=== PATIENT | female | born 1990 | race Caucasian/White ===

== ENCOUNTER 2017-11-09 14:21 | Emergency (ER) | payer OTHER ==
[~2017-11-09] VITALS: Ht 188 cm; Wt 93.0 kg
[~2017-11-09 14:21] MED LIST: ACET500 PO; ALBU90OI6 INH; AMOCLA875 PO; AMOX500 PO; BUDE6HFA INH; BUPR150T2 PO; BUPR75 PO; CIPR500 PO; Cipro500 MG PO; ESTNORT PO; HYDACE5 PO; HYDACE5325 PO; HYDHOMSY; IBUP600 PO; LORA2 PO; MECL12.5 PO; MULVITMINE PO; Norco 5-325 Ta1 EACH PO; OMEPRAZOLE MAGN20 MG PO; ONDA4 PO; ONDA4ODT MM; OXYACE5T PO; PHENA200 PO; PROM25 PO; PROM25S PR; Pyridium200 MG PO; RANI150 PO; RXLORA1 PO; RXONDA4ODT MM; SERT50 PO; SINUS MED; SULI200 PO; TRAM50 PO; Verotin-Gr Cap1 EACH PO; Zofran Odt4 MG PO; Zofran4 MG PO; [UNRECOGNIZED DRUG - CODE]; [UNRECOGNIZED DRUG - OTHER] PO
[2017-11-09 15:50] LABS: Source, Urine Clean Catch
[2017-11-09 16:03] LABS: Appearance, Urine Clear (Clear); Bilirubin, Urine Neg (Neg); Blood, Urine Neg (Neg); Color, Urine Yellow (P-Yellow); Glucose Qualitative, Urine Neg (Neg); Ketones, Urine Neg (Neg); Leukocyte Esterase, Urine 2+ (Neg); Nitrite, Urine Neg (Neg); Protein, Urine 2+ (Neg); Specific Gravity, Urine 1.015 (1.003-1.022); Urobilinogen, Urine NORM (Normal)
[2017-11-09 16:17] LABS: Bacteria Mod /hpf; Red Blood Cells, Urine 0-2 /hpf (0-2); Squamous Epithelial Cells Many /hpf (Few)
[2017-11-09 16:57] LABS: BASOPHILS ABSOLUTE AUTO 0.02 K/mm3 (0.00-0.23); BASOPHILS PERCENT AUTO 0 % (0-2); EOSINOPHILS ABSOLUTE AUTO 0.13 K/mm3 (0.00-0.68); EOSINOPHILS PERCENT AUTO 1 % (0-6); Hematocrit 41.3 % (33.0-51.0); Hemoglobin 13.3 g/dL (11.5-16.0); IMMATURE GRAN ABSOLUTE AUTO 0.05 K/mm3 (0.00-0.10); IMMATURE GRAN PERCENT AUTO 1 % (0-1); LYMPHOCYTES PERCENT AUTO 30 % (21-46); MONOCYTES ABSOLUTE AUTO 0.58 K/mm3 (0.16-1.47); MONOCYTES PERCENT AUTO 6 % (4-13); Mean Corpuscular HGB 31.4 pg (26.0-34.0); Mean Corpuscular HGB Conc 32.2 g/dL (31.5-36.5); Mean Corpuscular Volume 98 fL (80-100); NEUTROPHILS PERCENT AUTO 62 % (41-73); Platelet Count 176 K/mm3 (150-400); RDW Standard Deviation 46.5 fL (35.1-46.3); Red Blood Cell Count 4.23 M/mm3 (3.80-5.20); White Blood Cell Count 9.48 K/mm3 (4.00-11.30)
[2017-11-09 17:17] LABS: Alanine Aminotransfer (ALT/SGP 20 U/L (12-78); Albumin, Blood 4.3 g/dL (3.4-5.0); Albumin/Globulin Ratio 1.4 (0.8-1.8); Alk Phos 75 U/L (50-136); Anion Gap 8 mmol/L (6-16); Aspartate Aminotrans (AST/SGOT 16 U/L (12-37); Beta HCG, Quantitative, Serum 811 mIU/mL (0-3); Bilirubin, Total 0.3 mg/dL (0.1-1.0); Blood Urea Nitrogen 9 mg/dL (8-24); Bun/Creatinine Ratio 13.8 (12.0-20.0); CO2, Blood 23 mmol/L (21-32); Calcium, Blood 8.9 mg/dL (8.5-10.1); Chloride, Blood 106 mmol/L (98-108); Creatinine, Blood 0.65 mg/dL (0.40-1.00); Globulin, Blood 3.1 g/dL (2.2-4.0); Glomerular Filtration Rate >60 (60-); Glucose, Blood 84 mg/dL (70-99); Potassium, Blood 3.2 mmol/L (3.5-5.5); Sodium, Blood 137 mmol/L (136-145); Total Protein, Blood 7.4 g/dL (6.4-8.2)
== END 2017-11-09 18:25 | disposition home or self-care (01) ==
LOC: ER 14:21
PROVIDERS: Emergency Medicine
DX: O20.9 Hemorrhage in early pregnancy, unspecified (principal); O99.331 Smoking (tobacco) complicating pregnancy, first trimester; F17.210 Nicotine dependence, cigarettes, uncomplicated; Z88.0 Allergy status to penicillin; Z88.2 Allergy status to sulfonamides; Z79.899 Other long term (current) drug therapy; Z3A.01 Less than 8 weeks gestation of pregnancy
CPT/HCPCS: 36415; 76801; 76817; 80053; 81001; 81025; 84702; 85025; 86900; 86901; 87086; 99284

== ENCOUNTER 2017-11-28 11:11 | Emergency (ER) | payer OTHER ==
[~2017-11-28] VITALS: Ht 188 cm; Wt 90.7 kg
[2017-11-28 11:57] LABS: BASOPHILS ABSOLUTE AUTO 0.03 K/mm3 (0.00-0.23); BASOPHILS PERCENT AUTO 0 % (0-2); EOSINOPHILS ABSOLUTE AUTO 0.08 K/mm3 (0.00-0.68); EOSINOPHILS PERCENT AUTO 1 % (0-6); Hematocrit 40.2 % (33.0-51.0); Hemoglobin 13.2 g/dL (11.5-16.0); IMMATURE GRAN ABSOLUTE AUTO 0.06 K/mm3 (0.00-0.10); IMMATURE GRAN PERCENT AUTO 1 % (0-1); LYMPHOCYTES ABSOLUTE AUTO 1.92 K/mm3 (0.84-5.20); LYMPHOCYTES PERCENT AUTO 18 % (21-46); MONOCYTES ABSOLUTE AUTO 0.59 K/mm3 (0.16-1.47); MONOCYTES PERCENT AUTO 5 % (4-13); Mean Corpuscular HGB 31.8 pg (26.0-34.0); Mean Corpuscular HGB Conc 32.8 g/dL (31.5-36.5); Mean Corpuscular Volume 97 fL (80-100); NEUTROPHILS ABSOLUTE AUTO 8.31 K/mm3 (1.96-9.15); NEUTROPHILS PERCENT AUTO 76 % (41-73); Platelet Count 168 K/mm3 (150-400); RDW Standard Deviation 46.5 fL (35.1-46.3); Red Blood Cell Count 4.15 M/mm3 (3.80-5.20); White Blood Cell Count 10.99 K/mm3 (4.00-11.30)
[2017-11-28 12:21] LABS: Alanine Aminotransfer (ALT/SGP 23 U/L (12-78); Albumin, Blood 4.1 g/dL (3.4-5.0); Albumin/Globulin Ratio 1.2 (0.8-1.8); Alk Phos 75 U/L (50-136); Anion Gap 10 mmol/L (6-16); Aspartate Aminotrans (AST/SGOT 13 U/L (12-37); Bilirubin, Total 0.3 mg/dL (0.1-1.0); Blood Urea Nitrogen 8 mg/dL (8-24); Bun/Creatinine Ratio 14.1 (12.0-20.0); CO2, Blood 23 mmol/L (21-32); Calcium, Blood 9.1 mg/dL (8.5-10.1); Chloride, Blood 109 mmol/L (98-108); Creatinine, Blood 0.57 mg/dL (0.40-1.00); Globulin, Blood 3.5 g/dL (2.2-4.0); Glomerular Filtration Rate >60 (60-); Glucose, Blood 81 mg/dL (70-99); Potassium, Blood 3.5 mmol/L (3.5-5.5); Sodium, Blood 142 mmol/L (136-145); Total Protein, Blood 7.6 g/dL (6.4-8.2)
[2017-11-28 13:04] LABS: Beta HCG, Quantitative, Serum 107922 mIU/mL (0-3)
[2017-11-28 13:34] LABS: Source, Urine Clean Catch
[2017-11-28 13:41] LABS: Bilirubin, Urine Neg (Neg); Blood, Urine 1+ (Neg); Glucose Qualitative, Urine Neg (Neg); Ketones, Urine Neg (Neg); Leukocyte Esterase, Urine 1+ (Neg); Nitrite, Urine Neg (Neg); Protein, Urine 1+ (Neg); Specific Gravity, Urine 1.025 (1.003-1.022); Urobilinogen, Urine NORM (Normal)
[2017-11-28 13:50] LABS: Appearance, Urine Clear (Clear); Color, Urine Yellow (P-Yellow)
[2017-11-28 13:52] LABS: Red Blood Cells, Urine Not Seen /hpf (0-2); White Blood Cells, Urine Not Seen /hpf (0-5)
[2017-11-28 13:53] LABS: Bacteria Not Seen /hpf; Squamous Epithelial Cells Not Seen /hpf (Few)
== END 2017-11-28 14:20 | disposition home or self-care (01) ==
LOC: ER 11:11
PROVIDERS: Emergency Medicine
DX: O20.0 Threatened abortion (principal); O99.331 Smoking (tobacco) complicating pregnancy, first trimester; F17.210 Nicotine dependence, cigarettes, uncomplicated; Z88.2 Allergy status to sulfonamides; Z88.0 Allergy status to penicillin; Z79.899 Other long term (current) drug therapy; Z3A.01 Less than 8 weeks gestation of pregnancy
CPT/HCPCS: 36415; 76801; 76817; 80053; 81001; 81025; 84702; 85025; 86900; 86901; 87086; 96374; 99284; J2550

== ENCOUNTER 2017-12-14 11:17 | Emergency (ER) | payer OTHER ==
[~2017-12-14] VITALS: Ht 188 cm; Wt 90.7 kg
[2017-12-14 11:57] LABS: BASOPHILS ABSOLUTE AUTO 0.02 K/mm3 (0.00-0.23); BASOPHILS PERCENT AUTO 0 % (0-2); EOSINOPHILS ABSOLUTE AUTO 0.04 K/mm3 (0.00-0.68); EOSINOPHILS PERCENT AUTO 0 % (0-6); Hematocrit 39.1 % (33.0-51.0); IMMATURE GRAN ABSOLUTE AUTO 0.04 K/mm3 (0.00-0.10); IMMATURE GRAN PERCENT AUTO 0 % (0-1); LYMPHOCYTES ABSOLUTE AUTO 1.61 K/mm3 (0.84-5.20); LYMPHOCYTES PERCENT AUTO 16 % (21-46); MONOCYTES ABSOLUTE AUTO 0.49 K/mm3 (0.16-1.47); MONOCYTES PERCENT AUTO 5 % (4-13); Mean Corpuscular HGB 31.6 pg (26.0-34.0); Mean Corpuscular HGB Conc 33.2 g/dL (31.5-36.5); Mean Corpuscular Volume 95 fL (80-100); Mean Platelet Volume 12.1 fL (9.1-12.4); NEUTROPHILS ABSOLUTE AUTO 7.99 K/mm3 (1.96-9.15); NEUTROPHILS PERCENT AUTO 78 % (41-73); Platelet Count 181 K/mm3 (150-400); RDW Coefficient Variation 12.9 % (11.7-14.2); RDW Standard Deviation 44.7 fL (35.1-46.3); Red Blood Cell Count 4.12 M/mm3 (3.80-5.20); White Blood Cell Count 10.19 K/mm3 (4.00-11.30)
[2017-12-14 12:16] LABS: Alanine Aminotransfer (ALT/SGP 19 U/L (12-78); Albumin, Blood 3.9 g/dL (3.4-5.0); Albumin/Globulin Ratio 1.1 (0.8-1.8); Alk Phos 57 U/L (50-136); Anion Gap 10 mmol/L (6-16); Aspartate Aminotrans (AST/SGOT 11 U/L (12-37); Bilirubin, Total 0.3 mg/dL (0.1-1.0); Blood Urea Nitrogen 10 mg/dL (8-24); Bun/Creatinine Ratio 20.5 (12.0-20.0); CO2, Blood 22 mmol/L (21-32); Chloride, Blood 110 mmol/L (98-108); Creatinine, Blood 0.49 mg/dL (0.40-1.00); Globulin, Blood 3.4 g/dL (2.2-4.0); Glomerular Filtration Rate >60 (60-); Glucose, Blood 97 mg/dL (70-99); Potassium, Blood 3.5 mmol/L (3.5-5.5); Sodium, Blood 142 mmol/L (136-145); Total Protein, Blood 7.3 g/dL (6.4-8.2)
[2017-12-14 12:48] LABS: Beta HCG, Quantitative, Serum >200000 mIU/mL (0-3)
== END 2017-12-14 13:50 | disposition home or self-care (01) ==
LOC: ER 11:17
PROVIDERS: Emergency Medicine
DX: O20.9 Hemorrhage in early pregnancy, unspecified (principal); O99.331 Smoking (tobacco) complicating pregnancy, first trimester; F17.210 Nicotine dependence, cigarettes, uncomplicated; Z3A.09 9 weeks gestation of pregnancy; Z88.0 Allergy status to penicillin; Z88.2 Allergy status to sulfonamides; Z79.899 Other long term (current) drug therapy
CPT/HCPCS: 36415; 76801; 80053; 84702; 85025; 99284

== ENCOUNTER 2017-12-22 06:10 | Day surgery (SDC) | payer OTHER ==
[~2017-12-22] VITALS: Ht 185.4 cm; Wt 91.2 kg
[2017-12-22] MEDS ORDERED: Prilosec Otc20 MG PO (06:58)
[2017-12-24 15:24] LABS: Performing Lab SYMBIODX; Test Name TISSUE BLOCK
== END 2017-12-22 09:15 | disposition home or self-care (01) ==
LOC: ORSCSDS 06:10
PROVIDERS: Obstetrics & Gynecology
PROC: 10A07Z6 Abortion of Products of Conception, Vacuum, Via Natural or Artificial Opening (ICD-10-PCS; principal; 2017-12-22 07:30)
DX: O02.1 Missed abortion (principal); F17.210 Nicotine dependence, cigarettes, uncomplicated; K21.9 Gastro-esophageal reflux disease without esophagitis; Z79.899 Other long term (current) drug therapy
CPT/HCPCS: 88305; J2210; J2250; J2405; J3010; J7120

== ENCOUNTER → 2018-03-11 | Outpatient (CLI) | payer OTHER ==
[~2018-03-11] MED LIST changes: +Prilosec Otc20 MG PO
== END | disposition home or self-care (01) ==
LOC: LAB EV 15:46 → LAB SHORT 15:46
DX: J02.9 Acute pharyngitis, unspecified (principal)
CPT/HCPCS: 87070

== ENCOUNTER 2018-03-18 21:26 | Emergency (ER) | payer OTHER ==
[~2018-03-18] VITALS: Ht 188 cm; Wt 90.7 kg
[2018-03-18] MEDS ORDERED: BUPR75 (21:37)
[2018-03-18] MEDS ORDERED: JUBLIA4 ML (21:37)
[2018-03-18] MEDS ORDERED: PRENATAL TABLE1 EAC1 PO (21:44)
[2018-03-18 23:00] LABS: Source, Urine Clean Catch
[2018-03-18 23:03] LABS: BASOPHILS ABSOLUTE AUTO 0.04 K/mm3 (0.00-0.23); BASOPHILS PERCENT AUTO 0 % (0-2); Bilirubin, Urine Neg (Neg); Blood, Urine 2+ (Neg); EOSINOPHILS ABSOLUTE AUTO 0.18 K/mm3 (0.00-0.68); EOSINOPHILS PERCENT AUTO 2 % (0-6); Glucose Qualitative, Urine Neg (Neg); Hematocrit 40.5 % (33.0-51.0); Hemoglobin 13.2 g/dL (11.5-16.0); IMMATURE GRAN ABSOLUTE AUTO 0.06 K/mm3 (0.00-0.10); IMMATURE GRAN PERCENT AUTO 1 % (0-1); Ketones, Urine Neg (Neg); LYMPHOCYTES ABSOLUTE AUTO 2.83 K/mm3 (0.84-5.20); LYMPHOCYTES PERCENT AUTO 26 % (21-46); Leukocyte Esterase, Urine 1+ (Neg); MONOCYTES ABSOLUTE AUTO 0.85 K/mm3 (0.16-1.47); MONOCYTES PERCENT AUTO 8 % (4-13); Mean Corpuscular HGB 32.2 pg (26.0-34.0); Mean Corpuscular HGB Conc 32.6 g/dL (31.5-36.5); Mean Corpuscular Volume 99 fL (80-100); Mean Platelet Volume 11.8 fL (9.1-12.4); NEUTROPHILS ABSOLUTE AUTO 6.94 K/mm3 (1.96-9.15); NEUTROPHILS PERCENT AUTO 64 % (41-73); Nitrite, Urine Neg (Neg); Platelet Count 174 K/mm3 (150-400); Protein, Urine Neg (Neg); RDW Coefficient Variation 12.1 % (11.7-14.2); RDW Standard Deviation 44.8 fL (35.1-46.3); Urobilinogen, Urine NORM (Normal)
[2018-03-18 23:10] LABS: Appearance, Urine Hazy (Clear); Color, Urine Yellow (P-Yellow)
[2018-03-18 23:11] LABS: Amorphous Light (0-Heavy); Bacteria Many /hpf; Mucus Mod (0-Heavy); Red Blood Cells, Urine 0-2 /hpf (0-2); Squamous Epithelial Cells Mod /hpf (Few); White Blood Cells, Urine 0-2 /hpf (0-5)
[2018-03-18 23:26] LABS: Alanine Aminotransfer (ALT/SGP 24 U/L (12-78); Albumin/Globulin Ratio 1.1 (0.8-1.8); Alk Phos 82 U/L (50-136); Anion Gap 10 mmol/L (6-16); Aspartate Aminotrans (AST/SGOT 21 U/L (12-37); Bilirubin, Total 0.2 mg/dL (0.1-1.0); Blood Urea Nitrogen 7 mg/dL (8-24); CO2, Blood 23 mmol/L (21-32); Calcium, Blood 8.8 mg/dL (8.5-10.1); Chloride, Blood 109 mmol/L (98-108); Creatinine, Blood 0.54 mg/dL (0.40-1.00); Globulin, Blood 3.6 g/dL (2.2-4.0); Glomerular Filtration Rate >60 (60-); Glucose, Blood 84 mg/dL (70-99); Potassium, Blood 3.5 mmol/L (3.5-5.5); Sodium, Blood 142 mmol/L (136-145); Total Protein, Blood 7.6 g/dL (6.4-8.2)
[2018-03-18 23:40] LABS: Beta HCG, Quantitative, Serum 1100 mIU/mL (0-3)
[2018-03-19] MEDS ORDERED: Doxycycline Hy100 MG PO (03:04)
[2018-03-19 04:03] LABS: Candida species (DNA Probe) Negative (NEGATIVE); G. vaginalis (DNA Probe) Negative (NEGATIVE); T. vaginalis (DNA Probe) Negative (NEGATIVE)
[2018-03-21 11:06] LABS: CHLAMYDIA BY NAA Negative (Negative); GONOCOCCUS BY NAA Negative (Negative); TRICH VAG BY NAA Negative (Negative)
== END 2018-03-19 04:51 | disposition home or self-care (01) ==
LOC: ER 21:26
PROVIDERS: Emergency Medicine
DX: N73.9 Female pelvic inflammatory disease, unspecified (principal); O01.9 Hydatidiform mole, unspecified; F17.210 Nicotine dependence, cigarettes, uncomplicated; Z88.0 Allergy status to penicillin; Z88.2 Allergy status to sulfonamides; Z88.1 Allergy status to other antibiotic agents
CPT/HCPCS: 36415; 76830; 76856; 80053; 81001; 84702; 85025; 87086; 87480; 87491; 87510; 87591; 87660; 87661; 96361; 96365; 96375; 96376; 99284-25; J0696; J1170; J2405; J7030

== ENCOUNTER 2018-09-09 19:56 | Emergency (ER) | payer SELFPAY ==
[~2018-09-09 19:56] MED LIST changes: +BIRTH CONTROL; +BUPR75; +Doxycycline Hy100 MG PO; +JUBLIA4 ML; +METTREX2.5 PO; +Motion Sickness25 M1 PO; +PRENATAL TABLE1 EAC1 PO
== END 2018-09-09 22:39 | disposition left against medical advice (07) ==
LOC: ER 19:56
DX: Z53.21 Procedure and treatment not carried out due to patient leaving prior to being seen by health care provider (principal)

== ENCOUNTER → 2018-12-22 | Outpatient (CLI) | payer OTHER ==
[2018-12-22 11:08] LABS: BASOPHILS ABSOLUTE AUTO 0.04 K/mm3 (0.00-0.23); BASOPHILS PERCENT AUTO 0 % (0-2); EOSINOPHILS ABSOLUTE AUTO 0.13 K/mm3 (0.00-0.68); EOSINOPHILS PERCENT AUTO 1 % (0-6); Hematocrit 42.6 % (33.0-51.0); Hemoglobin 13.5 g/dL (11.5-16.0); IMMATURE GRAN ABSOLUTE AUTO 0.05 K/mm3 (0.00-0.10); IMMATURE GRAN PERCENT AUTO 1 % (0-1); LYMPHOCYTES ABSOLUTE AUTO 2.23 K/mm3 (0.84-5.20); LYMPHOCYTES PERCENT AUTO 22 % (21-46); MONOCYTES ABSOLUTE AUTO 0.71 K/mm3 (0.16-1.47); MONOCYTES PERCENT AUTO 7 % (4-13); Mean Corpuscular HGB 31.5 pg (26.0-34.0); Mean Corpuscular HGB Conc 31.7 g/dL (31.5-36.5); Mean Corpuscular Volume 100 fL (80-100); Mean Platelet Volume 12.8 fL (9.1-12.4); NEUTROPHILS ABSOLUTE AUTO 7.12 K/mm3 (1.96-9.15); NEUTROPHILS PERCENT AUTO 69 % (41-73); Platelet Count 190 K/mm3 (150-400); RDW Coefficient Variation 13.1 % (11.7-14.2); RDW Standard Deviation 48.2 fL (35.1-46.3); Red Blood Cell Count 4.28 M/mm3 (3.80-5.20); White Blood Cell Count 10.28 K/mm3 (4.00-11.30)
[2018-12-24 02:05] LABS: CHLAMYDIA TRACHOMATIS, NAA Negative (Negative); NEISSERIA GONORRHOEAE, NAA Negative (Negative)
== END | disposition home or self-care (01) ==
LOC: LAB 10:42 → LAB SHORT 10:42
PROVIDERS: Family Medicine
DX: Z32.01 Encounter for pregnancy test, result positive (principal); R10.31 Right lower quadrant pain
CPT/HCPCS: 84702; 85025; 87491; 87591

== ENCOUNTER → 2019-06-23 | Outpatient (CLI) | payer OTHER | END | disposition home or self-care (01) | LOC: LAB SHORT 14:49 → LAB 14:49 | DX: R30.0 Dysuria (principal) | CPT/HCPCS: 87086 ==

== ENCOUNTER 2019-09-27 19:25 | Emergency (ER) | payer OTHER ==
[~2019-09-27] VITALS: Ht 188 cm; Wt 89.8 kg
[2019-09-27] MEDS ORDERED: PRENATAL TABLE1 EAC2 PO (20:25)
[2019-09-27 20:32] LABS: Source, Urine Clean Catch
[2019-09-27 20:34] LABS: Bilirubin, Urine Neg (Neg); Blood, Urine 1+ (Neg); Glucose Qualitative, Urine Neg (Neg); Ketones, Urine 2+ (Neg); Leukocyte Esterase, Urine 3+ (Neg); Nitrite, Urine Neg (Neg); Protein, Urine 1+ (Neg); Specific Gravity, Urine 1.025 (1.003-1.022); Urobilinogen, Urine NORM (Normal)
[2019-09-27 20:48] LABS: BASOPHILS ABSOLUTE AUTO 0.03 K/mm3 (0.00-0.23); BASOPHILS PERCENT AUTO 0 % (0-2); EOSINOPHILS ABSOLUTE AUTO 0.08 K/mm3 (0.00-0.68); EOSINOPHILS PERCENT AUTO 1 % (0-6); Hematocrit 36.2 % (33.0-51.0); Hemoglobin 11.9 g/dL (11.5-16.0); IMMATURE GRAN PERCENT AUTO 1 % (0-1); LYMPHOCYTES ABSOLUTE AUTO 1.81 K/mm3 (0.84-5.20); LYMPHOCYTES PERCENT AUTO 13 % (21-46); MONOCYTES PERCENT AUTO 6 % (4-13); Mean Corpuscular HGB 32.8 pg (26.0-34.0); Mean Corpuscular HGB Conc 32.9 g/dL (31.5-36.5); Mean Corpuscular Volume 100 fL (80-100); Mean Platelet Volume 11.7 fL (9.1-12.4); NEUTROPHILS ABSOLUTE AUTO 10.99 K/mm3 (1.96-9.15); NEUTROPHILS PERCENT AUTO 80 % (41-73); Platelet Count 163 K/mm3 (150-400); RDW Coefficient Variation 13.2 % (11.7-14.2); RDW Standard Deviation 48.9 fL (35.1-46.3); Red Blood Cell Count 3.63 M/mm3 (3.80-5.20); White Blood Cell Count 13.81 K/mm3 (4.00-11.30)
[2019-09-27 20:55] LABS: Appearance, Urine Hazy (Clear); Color, Urine Yellow (P-Yellow)
[2019-09-27 20:56] LABS: Amorphous Mod (0-Heavy); Bacteria Many /hpf; Squamous Epithelial Cells Many /hpf (Few); White Blood Cells, Urine 25-50 /hpf (0-5)
[2019-09-27 21:07] LABS: Alanine Aminotransfer (ALT/SGP 16 U/L (12-78); Albumin, Blood 3.2 g/dL (3.4-5.0); Albumin/Globulin Ratio 0.9 (0.8-1.8); Alk Phos 61 U/L (50-136); Anion Gap 6 mmol/L (6-16); Aspartate Aminotrans (AST/SGOT 9 U/L (12-37); Bilirubin, Total 0.2 mg/dL (0.1-1.0); Blood Urea Nitrogen 8 mg/dL (8-24); Bun/Creatinine Ratio 16.4 (12.0-20.0); CO2, Blood 24 mmol/L (21-32); Calcium, Blood 8.5 mg/dL (8.5-10.1); Chloride, Blood 110 mmol/L (98-108); Creatinine, Blood 0.49 mg/dL (0.40-1.00); Globulin, Blood 3.6 g/dL (2.2-4.0); Glomerular Filtration Rate >60 (60-); Glucose, Blood 81 mg/dL (70-99); Potassium, Blood 3.3 mmol/L (3.5-5.5); Sodium, Blood 140 mmol/L (136-145); Total Protein, Blood 6.8 g/dL (6.4-8.2)
[2019-09-27] MEDS ORDERED: CEPH500 PO (21:50)
== END 2019-09-27 22:10 | disposition home or self-care (01) ==
LOC: ER 19:25
PROVIDERS: Physician Assistant
DX: O23.42 Unspecified infection of urinary tract in pregnancy, second trimester (principal); O99.332 Smoking (tobacco) complicating pregnancy, second trimester; F17.210 Nicotine dependence, cigarettes, uncomplicated; Z88.2 Allergy status to sulfonamides; Z88.0 Allergy status to penicillin; Z88.8 Allergy status to other drugs, medicaments and biological substances; Z3A.22 22 weeks gestation of pregnancy
CPT/HCPCS: 36415; 76700; 76815; 80053; 81001; 83690; 85025; 87086; 96361; 96374; 99284-25; J0696; J7030

== ENCOUNTER 2020-01-25 23:32 | Inpatient (IN) | payer OTHER ==
[~2020-01-25] VITALS: Ht 182.9 cm; Wt 106.0 kg
[~2020-01-25 23:32] MED LIST changes: +CEPH500 PO; +PRENATAL TABLE1 EAC2 PO
[2020-01-26 00:26] LABS: BASOPHILS ABSOLUTE AUTO 0.04 K/mm3 (0.00-0.23); BASOPHILS PERCENT AUTO 0 % (0-2); EOSINOPHILS PERCENT AUTO 1 % (0-6); Hematocrit 33.9 % (33.0-51.0); Hemoglobin 10.4 g/dL (11.5-16.0); IMMATURE GRAN ABSOLUTE AUTO 0.34 K/mm3 (0.00-0.10); IMMATURE GRAN PERCENT AUTO 2 % (0-1); LYMPHOCYTES ABSOLUTE AUTO 2.34 K/mm3 (0.84-5.20); LYMPHOCYTES PERCENT AUTO 13 % (21-46); MONOCYTES ABSOLUTE AUTO 1.39 K/mm3 (0.16-1.47); MONOCYTES PERCENT AUTO 8 % (4-13); Mean Corpuscular HGB 28.5 pg (26.0-34.0); Mean Corpuscular HGB Conc 30.7 g/dL (31.5-36.5); Mean Corpuscular Volume 93 fL (80-100); NEUTROPHILS ABSOLUTE AUTO 13.64 K/mm3 (1.96-9.15); NEUTROPHILS PERCENT AUTO 76 % (41-73); NRBC ABSOLUTE 0.04 K/mm3 (0.00-0.02); NRBC Auto 0.2 /100 WBC (0.0-0.2); Platelet Count 161 K/mm3 (150-400); RDW Coefficient Variation 14.5 % (11.7-14.2); RDW Standard Deviation 48.9 fL (35.1-46.3); Red Blood Cell Count 3.65 M/mm3 (3.80-5.20); White Blood Cell Count 17.85 K/mm3 (4.00-11.30)
[2020-01-26 00:29] LABS: Mean Platelet Volume 13.1 fL (9.1-12.4)
--- NOTE | 2020-01-26 11:54 | NUR ---
PER PT STILL ACHY DECLINES ANY FURTHER MED'S AT THIS TIME - INSTRUCTED PATIENT TO LET ME KNOW IF SHE CHANGES HER MIND; PT VERBALIZED UNDERSTANDING
--- NOTE | 2020-01-26 13:09 | NUR ---
REPORT TO ROBERT HINES RN
--- NOTE | 2020-01-26 14:04 | NUR ---
DR. SCHROEDER NOTIFIED OF MEDICATION GIVEN EARLY. ORDERS RECEIVED FOR ADDITION MEDICATION FOR PAIN.
[2020-01-27 05:29] LABS: Hemoglobin 9.2 g/dL (11.5-16.0); Mean Corpuscular HGB Conc 29.7 g/dL (31.5-36.5); Mean Corpuscular Volume 95 fL (80-100); NRBC ABSOLUTE 0.02 K/mm3 (0.00-0.02); NRBC Auto 0.1 /100 WBC (0.0-0.2); Platelet Count 147 K/mm3 (150-400); RDW Coefficient Variation 14.8 % (11.7-14.2); RDW Standard Deviation 50.3 fL (35.1-46.3); Red Blood Cell Count 3.28 M/mm3 (3.80-5.20); White Blood Cell Count 14.51 K/mm3 (4.00-11.30)
[2020-01-27] MEDS ORDERED: DOCU100 PO (08:23)
[2020-01-27] MEDS ORDERED: IBUP800 PO (08:23)
--- NOTE | 2020-01-27 09:37 | NUR ---
DECLINED FOLLOW UP APPOINTMENT PT IS GOING OUT OF TOWN TO MOTHER'S HOUSE RIGHT AWAY. MOTHER IS EXPERIENCED, BLEEDING IS STABLE, VSS, IS STABLE, FEEDING WELL, JAUNDICE LEVEL IS LOW, WT LOSS IS WNL. RN ENCOURAGED MOM TO CALL HERE OR OFFICE WITH ANY QUESTIONS OR CONCERNS. MOTHER VERBALIZED UNDERSTANDING AND AGREED.
== END 2020-01-27 09:40 | disposition home or self-care (01) | DRG 807 ==
LOC: OBS 23:32 → BC 23:34 → OBS 01-26 00:01 → BC 01-26 00:02
PROVIDERS: ADMIT Obstetrics & Gynecology
PROC: 10E0XZZ Delivery of Products of Conception, External Approach (ICD-10-PCS; principal; 2020-01-26)
PROC: 00HU33Z Insertion of Infusion Device into Spinal Canal, Percutaneous Approach (ICD-10-PCS; 2020-01-26)
PROC: 3E0R3BZ Introduction of Anesthetic Agent into Spinal Canal, Percutaneous Approach (ICD-10-PCS; 2020-01-26)
DX: O77.0 Labor and delivery complicated by meconium in amniotic fluid (principal); O69.89X0 Labor and delivery complicated by other cord complications, not applicable or unspecified; Z37.0 Single live birth; Z3A.39 39 weeks gestation of pregnancy; Z88.0 Allergy status to penicillin; Z88.2 Allergy status to sulfonamides
CPT/HCPCS: 36415; 51702; 85025; 85027; 86850; 86900; 86901; A9270; J1885; J2001; J2590; J3010; J7120

== ENCOUNTER 2021-07-01 07:13 | Day surgery (SDC) | payer OTHER ==
[~2021-07-01] VITALS: Ht 185.4 cm; Wt 94.2 kg
[~2021-07-01 07:13] MED LIST changes: +DOCU100 PO; +IBUP800 PO
[2021-07-01] MEDS ORDERED: SUMA25 PO (07:41)
[2021-07-01] MEDS ORDERED: CODACE30 PO (07:42)
[2021-07-01] MEDS ORDERED: Inderal 20 mg T20 MG PO (07:43)
[2021-07-01] MEDS ORDERED: HYDHCL25 PO (07:44)
== END 2021-07-01 12:00 | disposition home or self-care (01) ==
LOC: ORSCSDS 07:13
PROVIDERS: Otolaryngology
PROC: 0GSR0ZZ Reposition Parathyroid Gland, Open Approach (ICD-10-PCS; principal; 2021-07-01 08:30)
PROC: 0GTK0ZZ Resection of Thyroid Gland, Open Approach (ICD-10-PCS; principal; 2021-07-01 08:30)
PROC: 0GBJ0ZZ Excision of Thyroid Gland Isthmus, Open Approach (ICD-10-PCS; principal; 2021-07-01 08:30)
DX: E04.9 Nontoxic goiter, unspecified (principal); Z87.891 Personal history of nicotine dependence; K21.9 Gastro-esophageal reflux disease without esophagitis; Z79.899 Other long term (current) drug therapy
CPT/HCPCS: 88307; A9270; J1100; J1885; J2250; J2370; J2405; J2704; J2765; J3010

== ENCOUNTER → 2021-12-10 | Outpatient (CLI) | payer OTHER ==
[~2021-12-10] MED LIST changes: +CODACE30 PO; +HYDHCL25 PO; +Inderal 20 mg T20 MG PO; +SUMA25 PO
[2021-12-11 13:09] LABS: HPV 16 Negative (Negative); HPV 18 Negative (Negative); HPV OTHER HR TYPES Negative (Negative)
== END | disposition home or self-care (01) ==
LOC: LAB SHORT 11:22 → LAB 11:22
PROVIDERS: Obstetrics & Gynecology
DX: Z12.4 Encounter for screening for malignant neoplasm of cervix (principal)
CPT/HCPCS: 87624; G0123

== ENCOUNTER 2023-01-08 19:18 | Observation (INO) | payer OTHER ==
[~2023-01-08] VITALS: Ht 185.4 cm; Wt 78.5 kg
[~2023-01-08 19:18] MED LIST changes: +LEVSOD112 PO
[2023-01-09] VITALS (17 sets, daily range): BP systolic 83–112; BP diastolic 55–99
--- NOTE | 2023-01-09 00:20 | NUR ---
ADMIT ARRIVED VIA GURNEY FROM ER. A&OX4, PLEASANT AND COOPERATIVE. PT AWAITING SURGERY IN A.M. FOR APPENDECTOMY. PT REPORTS TOLERABLE PAIN AT THIS TIME. SURGICAL PACK PROVIDED AND PT USED INDEPENDENTLY. WILL CONTINUE TO MONITOR PAIN AND MEDICATE PER EMAR ORDERS.
--- NOTE | 2023-01-09 04:58 | NUR ---
CALL TO DR HILARIO ANSWERING SERVICE CALL [facility] TO INFORM OF DECLINE IN BP. MESSAGE LEFT W/ SHEFALI PT REMAINS ASYMPTOMATIC, FLUIDS CONTINUED. WILL CALL WITH FURTHER CONCERNS.
[2023-01-09 06:01] LABS: BASOPHILS ABSOLUTE AUTO 0.02 K/mm3 (0.00-0.23); BASOPHILS PERCENT AUTO 0 % (0-2); EOSINOPHILS ABSOLUTE AUTO 0.08 K/mm3 (0.00-0.68); EOSINOPHILS PERCENT AUTO 1 % (0-6); Hematocrit 32.1 % (33.0-51.0); Hemoglobin 10.5 g/dL (11.5-16.0); IMMATURE GRAN ABSOLUTE AUTO 0.01 K/mm3 (0.00-0.10); IMMATURE GRAN PERCENT AUTO 0 % (0-1); LYMPHOCYTES ABSOLUTE AUTO 1.62 K/mm3 (0.84-5.20); LYMPHOCYTES PERCENT AUTO 26 % (21-46); MONOCYTES ABSOLUTE AUTO 0.45 K/mm3 (0.16-1.47); MONOCYTES PERCENT AUTO 7 % (4-13); Mean Corpuscular HGB 33.3 pg (26.0-34.0); Mean Corpuscular HGB Conc 32.7 g/dL (31.5-36.5); Mean Corpuscular Volume 102 fL (80-100); NEUTROPHILS ABSOLUTE AUTO 4.12 K/mm3 (1.96-9.15); NEUTROPHILS PERCENT AUTO 65 % (41-73); Platelet Count 117 K/mm3 (150-400); RDW Coefficient Variation 13.2 % (11.7-14.2); RDW Standard Deviation 49.1 fL (35.1-46.3); Red Blood Cell Count 3.15 M/mm3 (3.80-5.20)
--- NOTE | 2023-01-09 06:26 | NUR ---
SHIFT SUMMARY ER ADMIT FOR APPENDICITIS W/ RLQ PAIN AND N/V. PT MEDICATED X1 FOR PAIN AND NAUSEA THIS SHIFT, CURRENTLY NPO FOR SURGERY TODAY. PT EXPERIENCING HYPOTENSION THIS SHIFT, CALL TO PCP AND ORDERS FOR BOLUS LR FLUIDS. FOLLOWING FLUIDS, REPEAT BP OBTAINED 88/59. PCP NOTIFIED VIA ANSERING SERVICE BY CHARGE NURSE SONNY. PT A&OX4 AND INDEPENDENT IN ROOM. PT REPORTS HX OF UTERINE CA W/ CHEMO AND MIGRAINES. CALL LIGHT W/IN REACH
--- NOTE | 2023-01-09 06:43 | NUR ---
CALL PLACED TO SURGEON DR. HILARIO CONTACTED D/T PTS BP AND PULSE REMAINING LOW AFTER 1L BOLUS OF LR. PT REMAINS ASYMPTOMATIC OF HYPOTENTION AND BRADYCARDIAM BUT REPORTS INCREASING PAIN. DR HILARIO REPORTS HE WILL BE HERE SOON. NO NEW ORDERS OBTAINED
[2023-01-09 06:58] LABS: Albumin/Globulin Ratio 1.2 (0.8-1.8); Bilirubin, Total 0.5 mg/dL (0.1-1.0); Bun/Creatinine Ratio 12.1 (12.0-20.0); Calcium, Blood 7.7 mg/dL (8.5-10.1); Creatinine, Blood 0.66 mg/dL (0.40-1.00); Globulin, Blood 2.5 g/dL (2.2-4.0); Potassium, Blood 3.7 mmol/L (3.5-5.5); Total Protein, Blood 5.5 g/dL (6.4-8.2)
--- NOTE | 2023-01-09 08:20 | NUR ---
DR. HILARIO IN ROOM AT ABOUT 0730. VSS, PT DENIES DIZZINESS. DAY SURGERY RN IN ROOM AT 0750 TO TAKE PT TO SURGERY.
--- NOTE | 2023-01-09 09:16 | NUR ---
PRE-OP NOTE PT TO DSU FOR PRE-OP. PT A&OX4, BREATHING RA, VSS, CALM, NO CONCERNS. Ambulatory in Day Surgery Patient confirms NPO status and agrees with scheduled surgery. Pre-Op teaching done. Pt verbalizes understanding.SURGERY DELAYED, PT REMAINS IN DSU, PAIN MEDICATION GIVEN, PT RESTING QUIETLY C EYES CLOSED. MOM AT BEDSIDE, CALL LIGHT WITHIN REACH.
--- NOTE | 2023-01-09 13:27 | NUR ---
POST OP: REPORT RECEIVED FROM RODENT CONTROL WORKER ROSE. PT TO UNIT AT ABOUT 1200, VSS, A/O. SURGICAL SITES WNL. CALL LIGHT IN REACH
--- NOTE | 2023-01-09 17:04 | NUR ---
SUMMARY: NO ACUTE CHANGE SINCE POST OP. VSS, 1 NARCO 5/325 SEEMS TO BE MANAGING PAIN. PT IS AMBULATING, VOIDING AND TOLERATED A SMALL AMT OF FOOD. PLAN IS FOR DC TOMORROW. PT MOM FILLED NARCO SCRIPT FOR HOME.
--- NOTE | 2023-01-09 17:39 | NUR ---
PT EDUCATED ON RISK REGARDING IGNITION SOURCES AND RISK OF INJURY WHILE OXYGEN IS IN USE. PT DENIES SMOKING/VAPING AND VERBALIZED UNDERSTANDING.
[2023-01-10 00:22] VITALS: BP 115/78
[2023-01-10 04:10] VITALS: BP 88/51
[2023-01-10 04:13] VITALS: BP 94/54
--- NOTE | 2023-01-10 04:20 | NUR ---
SHIFT SUMMARY PT RESTED WELL T/O NIGHT. AMBULATED HALLWAY X2 INDEPENDENTLY. REPORTS FLATUS. DOT PO. 1 NORCO FOR PAIN. X3 LAP SITES TO ABD REMAIN CDI. USES CALL LIGHT APPROPRIATELY.
[2023-01-10 07:31] VITALS: BP 96/65
[2023-01-10] MEDS ORDERED: Norco 5-325 Ta1 EACH PO (09:32)
--- NOTE | 2023-01-10 09:46 | NUR ---
DENIES ANY NAUSEA, REPORTS TOLERATING REGULAR DIET WELL, INCISIONS C/D/I, PT TOOK A SHOWER THIS AM, DC'D HOME, DC INSTRUCTIONS GIVEN, VERBALIZED UNDERSTANDING.
== END 2023-01-10 09:47 | disposition home or self-care (01) ==
LOC: ER 19:18 → SURS 19:19
PROVIDERS: Emergency Medicine; ADMIT Surgery
DX: K35.80 Unspecified acute appendicitis (principal); J45.909 Unspecified asthma, uncomplicated; E89.0 Postprocedural hypothyroidism; Z88.2 Allergy status to sulfonamides; Z88.0 Allergy status to penicillin; Z79.890 Hormone replacement therapy; R10.31 Right lower quadrant pain; N83.02 Follicular cyst of left ovary
CPT/HCPCS: 36415; 74177; 80053; 85025; 87077; 87086; 87186; 88304; 96365; 96375; 96376; 99284-25; A9270; G0378; J0694; J1100; J1170; J1885; J2405; J2704; J3010; J7030; J7120; Q9967

== ENCOUNTER 2023-02-26 07:53 | Day surgery (SDC) | payer OTHER ==
[2023-02-26] VITALS (18 sets, daily range): BP systolic 99–133; BP diastolic 61–79
[~2023-02-26] VITALS: Ht 181 cm; Wt 75.0 kg
--- NOTE | 2023-02-26 09:29 | NUR ---
Ambulatory in Day Surgery. History, Chart, Medications and Allergies reviewed before start of procedure. Pre-Op teaching done. Pt verbalizes understanding. Patient confirms NPO status and agrees with scheduled surgery. Lungs clear T/O to Auscultation. Patient reports completing Chlorhexadine shower X2 prior to admission to hospital. Patient States Post-Procedure ride home has been arranged.
--- NOTE | 2023-02-26 12:45 | NUR ---
PT ARRIVED TO 226 FROM PACU TRANSFERRED PT FROM [facility] TO BED. DC'D LOJA CATH. LAP INCISIONS TO ABD W/TISSUE ADHESIVE CDI. MOD AMOUNT SANG DRAINAGE NOTED ON CORTES PAD. PT REPORTS 8/10 LOWER ABD PAIN. DENIES N/V OR SOB. PROVIDED JELLO, CRACKERS AND WATER TO PT. ORIENTED TO ROOM AND USE OF CALL LIGHT.
[2023-02-26 13:22] LABS: BASOPHILS ABSOLUTE AUTO 0.01 K/mm3 (0.00-0.23); BASOPHILS PERCENT AUTO 0 % (0-2); EOSINOPHILS ABSOLUTE AUTO 0.01 K/mm3 (0.00-0.68); EOSINOPHILS PERCENT AUTO 0 % (0-6); Hemoglobin 11.5 g/dL (11.5-16.0); IMMATURE GRAN ABSOLUTE AUTO 0.04 K/mm3 (0.00-0.10); IMMATURE GRAN PERCENT AUTO 1 % (0-1); LYMPHOCYTES ABSOLUTE AUTO 0.77 K/mm3 (0.84-5.20); LYMPHOCYTES PERCENT AUTO 11 % (21-46); MONOCYTES ABSOLUTE AUTO 0.16 K/mm3 (0.16-1.47); MONOCYTES PERCENT AUTO 2 % (4-13); Mean Corpuscular HGB 32.9 pg (26.0-34.0); Mean Corpuscular HGB Conc 32.9 g/dL (31.5-36.5); Mean Corpuscular Volume 100 fL (80-100); Mean Platelet Volume 12.4 fL (9.1-12.4); NEUTROPHILS ABSOLUTE AUTO 6.07 K/mm3 (1.96-9.15); NEUTROPHILS PERCENT AUTO 86 % (41-73); Platelet Count 132 K/mm3 (150-400); RDW Coefficient Variation 12.9 % (11.7-14.2); RDW Standard Deviation 47.2 fL (35.1-46.3); White Blood Cell Count 7.06 K/mm3 (4.00-11.30)
--- NOTE | 2023-02-26 17:50 | NUR ---
SUMMARY PT STILL PAINFUL. MEDICATED PER ORDERS FOR PAIN. ICE PACK PROVIDED FOR COMFORT; KPAD DID NOT APPEAR EFFECTIVE. PT REPORTS SOME RELIEF W/ICEPACK. GETTING UP INDEPENDENTLY. TOLERATING PO. HAS VOIDED. CALL LIGHT IN REACH.
[2023-02-27] VITALS: BP 93/57
[2023-02-27 04:11] VITALS: BP 104/77
--- NOTE | 2023-02-27 04:37 | NUR ---
SHIFT SUMMARY PATIENT POD1 LAVH. MINIMAL BLOOD ON BRENDAN PAD. PATIENT VOIDING THIS SHIFT IN BATHROOM. PATIENT DID HAVE A BOUT OF NAUSEA AND WAS MEDICATED PER EMAR. ABLE TO REST THIS AM AND TOLERATING LIQUID INTAKE. LAP SITES BANKING SERVICES CLERK WITH TISSUE ADHESIVE. C/D/I. PATIENT PASSING GAS THIS SHIFT. SBP WAS SOFT EARLIER IN SHIFT,OF 90'S, AND PATIENT REPORTED HAVING SOME DIZZINESS, IVF STARTED PER ORDER AND SBP BACK UP TO 104-110. DENIES N/T IN EXT'S. CALL LIGHT IN REACH.
[2023-02-27 08:24] VITALS: BP 103/69
[2023-02-27] MEDS ORDERED: Percocet 5-3251 EACH PO (11:01)
[2023-02-27] MEDS ORDERED: IBU800 MG PO (11:02)
--- NOTE | 2023-02-27 14:40 | NUR ---
PT RESTING IN BED, REQUESTED IV BE DC'D IN PREPARATION FOR DISCHARGE. STATED SISTER SHOULD ARRIVE SHORTLY TO GIVE RIDE HOME. DC'D IV, CATHETER INTACT. PT DENIES ANY OTHER NEEDS AT THIS TIME.
[2023-02-27 14:58] VITALS: BP 91/60
--- NOTE | 2023-02-27 16:00 | NUR ---
discharged reviewed dc instructions w/pt; verbalized understanding. pt left unit in wc w/possessions and dc instructions in hand to ride outside.
== END 2023-02-27 16:00 | disposition home or self-care (01) ==
LOC: ORSCMMR 07:53 → ORD 09:00 → SURS 12:01 → ORSCMMR 02-27 16:00
PROVIDERS: Obstetrics & Gynecology
PROC: 0UT7FZZ Resection of Bilateral Fallopian Tubes, Via Natural or Artificial Opening With Percutaneous Endoscopic Assistance (ICD-10-PCS; principal; 2023-02-26 09:00)
PROC: 0UT9FZZ Resection of Uterus, Via Natural or Artificial Opening With Percutaneous Endoscopic Assistance (ICD-10-PCS; principal; 2023-02-26 09:00)
DX: N92.0 Excessive and frequent menstruation with regular cycle (principal); R10.2 Pelvic and perineal pain; N80.03 Adenomyosis of the uterus; T83.32XD Displacement of intrauterine contraceptive device, subsequent encounter; Z87.891 Personal history of nicotine dependence
CPT/HCPCS: 36415; 85025; 88307; A9270; J0690; J0780; J1100; J1885; J2250; J2405; J2704; J3010; J7120

== ENCOUNTER 2023-12-10 09:30 | Day surgery (SDC) | payer OTHER ==
[~2023-12-10] VITALS: Ht 182.9 cm; Wt 78.2 kg
[~2023-12-10 09:30] MED LIST changes: +IBU800 MG PO; +Lactated Ringer's 1,000 ML IV ONE; +Percocet 5-3251 EACH PO; +Ropivacaine 0.5% HCl/Pf 5 MG/ML 20ML VIAL ONE
[2023-12-10] MEDS ORDERED: FLUDROCORTISON0.1 M1 PO (09:58)
[2023-12-10] MEDS ORDERED: Lactated Ringer's 1,000 ML IV ONE ×3 (10:11→13:02)
[2023-12-10] MEDS ORDERED: ALBU90OI INH (10:18)
[2023-12-10] MEDS ORDERED: FentaNYL Citrate 50 MCG/ML 2 ML Injection ONE ×2 (10:32→12:40)
[2023-12-10] MEDS ORDERED: propofoL 20 ML IV ONE (10:32)
[2023-12-10] MEDS ORDERED: Sugammadex Sodium 200 MG/2ML SDV (100 MG/ML) ONE (10:32)
[2023-12-10] MEDS ORDERED: Midazolam HCl 1MG / ML 2ML Vial ONE (10:33)
[2023-12-10] MEDS ORDERED: Rocuronium Bromide 10 MG/ML 5ML Injection IV ONE (10:33)
[2023-12-10] MEDS ORDERED: Ondansetron HCl 2 MG / ML 2ML Vial ONE ×2 (10:33→12:40)
[2023-12-10] MEDS ORDERED: Dexamethasone Sod Phos 10 MG/ML 1ML VIAL ONE (10:33)
--- NOTE | 2023-12-10 11:52 | NUR ---
12/10/23 1152 Iris Edouard HEAD ON PILLOW, HERNANDEZ BAGLEY, RIGHT ARM SECUREO ON PADDED ARM BOARD, LEFT ARM TUCKED.
[2023-12-10] MEDS ORDERED: HYDROmorphone HCl/Pf 1MG SYR ONE (12:44)
--- NOTE | 2023-12-10 13:05 | NUR ---
12/10/23 1305 PRISCILA MUIR PT O2 DROPPING AFTER FENANYL 25MCG. PT BECOMING MORE RELAXED. DEEP BREATHS BROUGHT O2 UP TO 99% ON RA. WILL SUPLIMENT WITH O2 NEEDED.
[2023-12-10] MEDS ORDERED: HYDROcodone 5-APAP 325 TAB ONE (13:30)
[2023-12-10 13:35] VITALS: BP 116/85
[2023-12-10] MEDS ORDERED: Ibuprofen 400 MG Tab ONE (13:47)
[2023-12-10] MEDS ORDERED: Metoclopramide HCl 5MG / ML 2ML Vial ONE (13:56)
== END 2023-12-10 14:33 | disposition home or self-care (01) ==
LOC: ORSCSDS 09:30
PROVIDERS: Obstetrics & Gynecology
PROC: 0U5F4ZZ Destruction of Cul-de-sac, Percutaneous Endoscopic Approach (ICD-10-PCS; principal; 2023-12-10 11:00)
DX: N80.329 Endometriosis of the posterior cul-de-sac, unspecified depth (principal); R10.2 Pelvic and perineal pain; N73.6 Female pelvic peritoneal adhesions (postinfective); J45.909 Unspecified asthma, uncomplicated; E03.9 Hypothyroidism, unspecified; Z79.899 Other long term (current) drug therapy
CPT/HCPCS: A9270; J1100; J1170; J2250; J2405; J2704; J2765; J2795; J3010; J7120

== ENCOUNTER 2024-03-29 11:34 | Emergency (ER) | payer OTHER ==
[~2024-03-29] VITALS: Ht 185.4 cm; Wt 79.8 kg
[~2024-03-29 11:34] MED LIST changes: +ALBU90OI INH; +FLUDROCORTISON0.1 M1 PO; -Lactated Ringer's 1,000 ML IV ONE; -Ropivacaine 0.5% HCl/Pf 5 MG/ML 20ML VIAL ONE
[2024-03-29 12:09] VITALS: BP 113/81
[2024-03-29] MEDS ORDERED: Prochlorperazine Edisylate 10 mg Vial IV ONE (12:15)
[2024-03-29] MEDS ORDERED: Ketorolac Tromethamine 15mg Vial IV ONE (12:15)
[2024-03-29] MEDS ORDERED: NS 1,000 ML IV SCH (12:15)
[2024-03-29] MEDS ORDERED: DiphenhydrAMINE HCl 50 MG/ML 1ML Vial IV ONE (12:15)
[2024-03-29] MEDS ORDERED: Dexamethasone Sod Phos 10 MG/ML 1ML VIAL IV ONE (13:50)
== END 2024-03-29 14:10 | disposition home or self-care (01) ==
LOC: ER 11:34
DX: G43.B0 Ophthalmoplegic migraine, not intractable (principal); J45.909 Unspecified asthma, uncomplicated; Z88.2 Allergy status to sulfonamides; Z88.0 Allergy status to penicillin; Z88.1 Allergy status to other antibiotic agents; Z91.018 Allergy to other foods; Z91.048 Other nonmedicinal substance allergy status
CPT/HCPCS: 70450; 96374; 96375; 99284-25; J0780; J1100; J1200; J1885; J7030

== ENCOUNTER 2024-05-24 07:50 | Day surgery (SDC) | payer BC, OTHER ==
[~2024-05-24] VITALS: Ht 185.4 cm; Wt 78.5 kg
[~2024-05-24 07:50] MED LIST changes: +Lactated Ringer's 1,000 ML IV ONE; +propofoL 50 ML IV ONE
[2024-05-24] MEDS ORDERED: Lactated Ringer's 1,000 ML IV ONE (09:20)
[2024-05-24 10:27] VITALS: BP 118/82
== END 2024-05-24 10:27 | disposition home or self-care (01) ==
LOC: ORSCSDS 07:50
PROVIDERS: Surgery
PROC: 0DJD8ZZ Inspection of Lower Intestinal Tract, Via Natural or Artificial Opening Endoscopic (ICD-10-PCS; principal; 2024-05-24 09:15)
DX: R10.9 Unspecified abdominal pain (principal); K57.30 Diverticulosis of large intestine without perforation or abscess without bleeding; Z83.719 Family history of colon polyps, unspecified; F41.9 Anxiety disorder, unspecified; K21.9 Gastro-esophageal reflux disease without esophagitis; J45.909 Unspecified asthma, uncomplicated; Z87.891 Personal history of nicotine dependence; Z79.899 Other long term (current) drug therapy
CPT/HCPCS: J2704; J7120

== ENCOUNTER 2024-12-19 06:59 | Emergency (ER) | payer BC, OTHER ==
[~2024-12-19] VITALS: Ht 185.4 cm; Wt 80.3 kg
[~2024-12-19 06:59] MED LIST changes: -Lactated Ringer's 1,000 ML IV ONE; -propofoL 50 ML IV ONE
[2024-12-19] MEDS ORDERED: LEVSOD75 PO (07:40)
[2024-12-19] MEDS ORDERED: Ketorolac Tromethamine 30mg Vial IM ONE (08:35)
[2024-12-19] MEDS ORDERED: Methocarbamol 500 MG Tab PO ONE (08:40)
[2024-12-19] MEDS ORDERED: Methyl Salicylate/Menth/Camph 57 GM TUBE TOP ONE (08:40)
[2024-12-19] MEDS ORDERED: LIDOCAINE1 EACH TOP (08:46)
[2024-12-19] MEDS ORDERED: PRED20 PO (08:46)
[2024-12-19] MEDS ORDERED: Robaxin750 MG PO (08:46)
[2024-12-19] MEDS ORDERED: IBUP800 PO (08:46)
[2024-12-19 09:07] VITALS: BP 122/91
== END 2024-12-19 09:00 | disposition home or self-care (01) ==
LOC: ER 06:59
DX: M54.12 Radiculopathy, cervical region (principal); J45.909 Unspecified asthma, uncomplicated; E89.0 Postprocedural hypothyroidism; F17.210 Nicotine dependence, cigarettes, uncomplicated; Z88.2 Allergy status to sulfonamides; Z88.1 Allergy status to other antibiotic agents; Z88.0 Allergy status to penicillin; Z91.048 Other nonmedicinal substance allergy status; Z91.018 Allergy to other foods; Z79.890 Hormone replacement therapy
CPT/HCPCS: 99282; A9270; J1885

== ENCOUNTER 2024-12-21 08:24 | Emergency (ER) | payer BC, OTHER ==
[~2024-12-21] VITALS: Ht 185.4 cm; Wt 80.3 kg
[~2024-12-21 08:24] MED LIST changes: +LEVSOD75 PO; +LIDOCAINE1 EACH TOP; +PRED20 PO; +Robaxin750 MG PO
[2024-12-21 09:05] VITALS: BP 121/97
[2024-12-21] MEDS ORDERED: GABA300 PO (12:15)
== END 2024-12-21 12:21 | disposition home or self-care (01) ==
LOC: ER 08:24
DX: M54.12 Radiculopathy, cervical region (principal); J45.909 Unspecified asthma, uncomplicated; G43.909 Migraine, unspecified, not intractable, without status migrainosus; F17.210 Nicotine dependence, cigarettes, uncomplicated; Z88.2 Allergy status to sulfonamides; Z88.1 Allergy status to other antibiotic agents; Z88.0 Allergy status to penicillin; Z91.048 Other nonmedicinal substance allergy status; Z91.018 Allergy to other foods; Z79.890 Hormone replacement therapy; Z79.52 Long term (current) use of systemic steroids; Z79.899 Other long term (current) drug therapy
CPT/HCPCS: 72040; 72125; 72128; 99284-25; A9270

== ENCOUNTER → 2025-02-16 | Outpatient (CLI) | payer BC, OTHER ==
[~2025-02-16] MED LIST changes: +GABA300 PO
[2025-02-16 15:51] LABS: Candida Group, PCR NOT DETECTED (NOT DETECT); Candida glabrata-krusei, PCR NOT DETECTED (NOT DETECT)
[2025-02-16 16:09] LABS: Bacterial Vaginosis PCR Positive (NEGATIVE)
== END | disposition home or self-care (01) ==
LOC: LAB 07:53 → LAB SHORT 07:53
DX: N89.8 Other specified noninflammatory disorders of vagina (principal); N94.9 Unspecified condition associated with female genital organs and menstrual cycle; Z72.51 High risk heterosexual behavior
CPT/HCPCS: 81515